=== PATIENT | male | born 1980 | race African-American/Black ===

== ENCOUNTER 2024-03-31 14:23 | Emergency (ER) | payer MEDICAID ==
[~2024-03-31] VITALS: Ht 182.9 cm; Wt 90.7 kg
[2024-03-31] MEDS ORDERED: IBUP-1955 PO (15:02)
[2024-03-31] MEDS ORDERED: ACET-2605 PO (15:02)
[2024-03-31] MEDS ORDERED: CYCL5TAB PO (15:02)
[2024-03-31] MEDS ORDERED: LIDOCAINE 5% (PATCH) 1 EA PATCH TP ONE (15:25)
[2024-03-31] MEDS ORDERED: ACETAMINOPHEN ES 500 MG TABLET ONE (15:26)
[2024-03-31] MEDS ORDERED: IBUPROFEN 600 MG TABLET ONE (15:26)
[2024-03-31] MEDS: IBUPROFEN 600 MG TABLET PO ONE (15:28)
[2024-03-31] MEDS: LIDOCAINE 5% (PATCH) 1 EA PATCH TP ONE (15:28)
[2024-03-31] MEDS: ACETAMINOPHEN ES 500 MG TABLET PO ONE (15:28)
--- NOTE | 2024-03-31 15:48 | NUR ---
Patient discharged to home in stable condition. Written and verbal after care instructions given. Patient verbalizes understanding of instruction.
[2024-03-31 15:49] VITALS: BP 105/60; TEMP 98.9; O2SAT 100
== END 2024-03-31 15:49 | disposition home or self-care (01) ==
LOC: ER 14:35
DX: M54.59 Other low back pain (principal); V49.49XA Driver injured in collision with other motor vehicles in traffic accident, initial encounter; Y93.89 Activity, other specified; Y92.488 Other paved roadways as the place of occurrence of the external cause; Y99.8 Other external cause status